=== PATIENT | female | born 1980 | race Caucasian/White ===

== ENCOUNTER 2018-07-01 20:07 | Emergency (ER) | payer OTHER ==
[~2018-07-01] VITALS: Ht 170.2 cm; Wt 59.0 kg
[2018-07-01 20:08] VITALS: Ht 170.2 cm; Wt 59.0 kg
[2018-07-01 20:28] VITALS: BP 131/88
== END 2018-07-01 20:28 | disposition other institution (70) ==
LOC: ED 20:07
DX: Z02.89 Encounter for other administrative examinations (principal)